=== PATIENT | female | born 1990 | race Caucasian/White ===

== ENCOUNTER 2018-05-14 10:57 | Observation (INO) | payer MEDICAID ==
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
[2018-05-14] MEDS ORDERED: ceFAZolin 2 GM/DEXTROSE 100 ML IV ONE (11:10)
[2018-05-14] MEDS ORDERED: PREGABALIN 150 MG CAP PO ONE (11:10)
[2018-05-14] MEDS ORDERED: LR 1,000 ML IV ONE (11:10)
[2018-05-14] MEDS ORDERED: ACETAMINOPHEN 500 MG TAB PO ONE (11:10)
[2018-05-14] MEDS ORDERED: MIDAZOLAM 2 MG/2 ML VIAL IVP ONE (11:37)
[2018-05-14] MEDS ORDERED: ONDANSETRON 4 MG/2 ML VIAL IVP PRN (11:38)
[2018-05-14] MEDS ORDERED: PHENYLEPHRINE HCL 100 MCG/ML SYR IVP PRN (11:38)
[2018-05-14] MEDS ORDERED: METOCLOPRAMIDE 10 MG/2 ML VIAL IVP PRN (11:38)
[2018-05-14] MEDS ORDERED: NALOXONE HCL 0.4 MG/ML INJ IVP PRN (11:38)
[2018-05-14] MEDS ORDERED: LR 500 ML IV PRN (11:38)
[2018-05-14] MEDS ORDERED: oxyCODONE IR 5 MG TAB PO PRN (11:38)
[2018-05-14] MEDS ORDERED: MEPERIDINE 25 MG/0.5 ML AMP IVP PRN (11:38)
[2018-05-14] MEDS ORDERED: LIDOCAINE 2% 5 ML SDV ONE (11:41)
[2018-05-14] MEDS ORDERED: ROCURONIUM 50 MG/5 ML VIAL ONE (11:41)
[2018-05-14] MEDS ORDERED: DEXAMETHASONE 4 MG/ML VIAL ONE ×2 (11:41→18:03)
[2018-05-14] MEDS ORDERED: ONDANSETRON 4 MG/2 ML VIAL ONE ×2 (11:41→17:37)
[2018-05-14] MEDS ORDERED: fentaNYL 250 MCG/5 ML INJ ONE (11:41)
[2018-05-14] MEDS ORDERED: PROPOFOL 200 MG/20 ML VIAL ONE (11:42)
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
[2018-05-14] MEDS ORDERED: BUPIVACAINE 0.25% 30 ML SDV ONE (12:48)
[2018-05-14] MEDS ORDERED: EPINEPHrine 30 MG/30 ML MDV (0.1 MG/0.1 ML) ONE (12:48)
--- NOTE | 2018-05-14 13:41 | POSTANESTH ---
Post Anesthetic Evaluation Cardiovascular Status: Normal, Stable Respiratory Status: Normal, Stable Level of Consciousness/Mental Status: Can Participate in Eval Pain Control: Adequate, Prn Tx Ordered Nausea/Vomiting Control: Adequate, Prn Tx Ordered Complications Possibly Related to Anesthesia: None Noted
[2018-05-14] MEDS ORDERED: ePHEDrine SULFATE 25 MG/5 ML SYR ONE (14:26)
[2018-05-14] MEDS ORDERED: NITROGLYCERIN 50 MG/10 ML SDV IV ONE (14:26)
[2018-05-14] MEDS ORDERED: fentaNYL 100 MCG/2 ML INJ ONE ×2 (15:52→18:34)
--- NOTE | 2018-05-14 16:48 | POSTOPPROG ---
Post Op Note Date of Operation: 05/14/18 Surgeon: Zach Benedict Investor Relations Director: Dr. Suarez Anesthesia: GET(General Endotracheal) Pre-op Diagnosis: RIGHT TAWANA Post-op Diagnosis: RIGHT TAWANA Procedure: Right Hip Arthroscopy Inf/Abcess present in the surg proc area at time of surgery?: No
[2018-05-14] MEDS ORDERED: DEXAMETHASONE 4 MG/ML VIAL IVP ONE (18:15)
[2018-05-14] MEDS: fentaNYL 100 MCG/2 ML INJ IVP PRN ×3 (18:36→19:09)
[2018-05-14] MEDS ORDERED: HYDROmorphONE/DILAUDID 2 MG/ML INJ ONE (19:25)
[2018-05-14] MEDS: HYDROmorphONE/DILAUDID 2 MG/ML INJ IVP PRN ×3 (19:56→20:35)
[2018-05-14] MEDS ORDERED: PROMETHAZINE HCL 25 MG/ML INJ ONE (19:59)
[2018-05-14] MEDS: PROMETHAZINE HCL 25 MG/ML INJ IVP PRN ×2 (20:01→20:17)
[2018-05-14] MEDS ORDERED: ONDANSETRON DISINTEGRATING 4 MG TAB PO PRN (20:51)
[2018-05-14] MEDS ORDERED: TEMAZEPAM 15 MG CAP PO PRN (20:51)
[2018-05-14] MEDS ORDERED: PROMETHAZINE HCL 25 MG/ML INJ IVP PRN (20:51)
[2018-05-14] MEDS: HYDROmorphONE/DILAUDID 1 MG/ML INJ IVP PRN (22:28)
[2018-05-15] MEDS: HYDROmorphONE/DILAUDID 1 MG/ML INJ IVP PRN (00:48)
[2018-05-15] MEDS: HYDROmorphONE/DILAUDID 2 MG TAB PO PRN ×4 (00:48→10:17)
[2018-05-15 07:27] VITALS: BP 113/59
[2018-05-15] MEDS ORDERED: HYDROmorphONE/DILAUDID 2 MG TAB PO ONE (08:15)
--- NOTE | 2018-05-15 11:16 | ASMTLACE ---
LACE Length of stay for Answers: 2 days current admission Acuity / Level of Answers: No Care: Did the patient have an inpatient admission? Comorbidities - select Answers: Any tumor (including all that apply lymphoma or leukemia) Opioid dependence / Chronic pain # of Emergency department Answers: 0 visits in the last 6 months Score: 8 Date Signed: 05/15/2018 11:15 AM Electronically Signed By:CAROL England
--- NOTE | 2018-05-15 11:17 | ASMTCMCOM ---
CM Note CM Note Notes: Pt medically stable for d/c with spouse, pt has three children. PT rec home. No CM d/c needs identified. Date Signed: 05/15/2018 11:16 AM Electronically Signed By:CAROL England
== END 2018-05-15 10:55 | disposition home or self-care (01) ==
LOC: FSGY 10:57 → F3N 20:51
PROVIDERS: ADMIT Orthopaedic Surgery Sports Medicine; ATTEND Orthopaedic Surgery Sports Medicine
PROC: 0SQ94ZZ Repair Right Hip Joint, Percutaneous Endoscopic Approach (ICD-10-PCS; principal; 2018-05-14 13:00)
DX: M25.851 Other specified joint disorders, right hip (principal); M24.151 Other articular cartilage disorders, right hip; M25.852 Other specified joint disorders, left hip
CPT/HCPCS: 97116-GP; 97161-GP; C1713; J0171; J0690; J1100; J1170; J2250; J2405; J2550; J2704; J3010